=== PATIENT | male | born 1965 | race Caucasian/White ===

== ENCOUNTER 2017-08-04 14:43 | Inpatient (IN) | payer BC ==
[~2017-08-04] VITALS: Ht 175.3 cm; Wt 96.9 kg
[2017-08-04 15:40] LABS: HEMATOCRIT 43.6 % (38.0-50.0); MCHC 34.9 G/DL (30.0-36.0); MCV 80.3 FL (86-99); MEAN PLAT.VOLUME 10.3 uM^3 (9.0-12.4); PLATELET COUNT 126 K/uL (156-360); RBC DIS.WIDTH-CV 12.4 % (11.8-14.6); RBC DIS.WIDTH-SD 35.6 % (39-53); RED BLOOD COUNT 5.43 M/uL (4.00-5.50); WHITE BLOOD COUNT 7.1 K/uL (4.1-10.2)
[2017-08-04 15:44] LABS: ADD MIUA? YES; BILIRUBIN NEGATIVE; BLOOD NEGATIVE; COLOR AMBER ((YELLOW)); GLUCOSE (STRIP) 50; KETONES NEGATIVE; LEUKOCYTES NEGATIVE; NITRITE NEGATIVE; PROTEIN (STRIP) 30; SPECIFIC GRAVITY 1.023 (1.000-1.030)
[2017-08-04 15:51] LABS: BACTERIA RARE /HPF; EPITHELIAL CELLS RARE /HPF; HYALINE CASTS 0-5 /LPF; MUCUS TRACE /LPF; RED BLOOD CELLS 0-5 /HPF (0-5); WHITE BLOOD CELLS 0-5 /HPF (0-5)
[2017-08-04 16:01] LABS: CHLORIDE 104 mEq/L (99-109); POTASSIUM 3.3 mEq/L (3.7-5.4); SODIUM 135 mEq/L (136-147)
[2017-08-04 16:03] LABS: GLUCOSE 190 mg/dL (70-99)
[2017-08-04 16:04] LABS: ANION GAP 10 MEQ/L (2-14)
[2017-08-04 16:06] LABS: ALKALINE PHOSPHATASE 90 IU/L (3-129)
[2017-08-04 16:07] LABS: GFR ESTIMATE (CALCULATED) > 59 mL/min/
[2017-08-04 16:08] LABS: UREA NITROGEN (BUN) 9 mg/dL (9-23)
[2017-08-04 20:54] LABS: INFLUENZA A VIRAL ANTIGEN NEGATIVE; INFLUENZA B VIRAL ANTIGEN NEGATIVE
[2017-08-04] MEDS ORDERED: MOTRIN600 MG PO (20:58)
[2017-08-04] MEDS ORDERED: CIPRO500 MG PO (20:59)
[2017-08-04 22:17] VITALS: BP 138/85
[2017-08-04 23:41] VITALS: BP 160/80
[2017-08-05 06:58] LABS: HEMATOCRIT 40.3 % (38.0-50.0); MCH 27.5 PG (29.0-34.0); MCV 80.9 FL (86-99); MEAN PLAT.VOLUME 10.8 uM^3 (9.0-12.4); PLATELET COUNT 104 K/uL (156-360); RBC DIS.WIDTH-CV 12.6 % (11.8-14.6); RED BLOOD COUNT 4.98 M/uL (4.00-5.50); WHITE BLOOD COUNT 5.1 K/uL (4.1-10.2)
[2017-08-05 07:25] LABS: ANION GAP 8 MEQ/L (2-14); CHLORIDE 107 MEQ/L (99-109); GFR ESTIMATE (CALCULATED) > 59 mL/min/; GLUCOSE 142 mg/dL (70-99); POTASSIUM 3.4 MEQ/L (3.7-5.4); SAMPLE HEMOLYSIS CHECK 0; SAMPLE ICTERIC CHECK 0; SAMPLE LIPEMIA CHECK 0; SODIUM 140 MEQ/L (136-147); UREA NITROGEN (BUN) 9 mg/dL (9-23)
[2017-08-05 07:29] VITALS: BP 117/72
[2017-08-05 15:17] VITALS: BP 167/89
[2017-08-05 15:37] VITALS: BP 158/83
[2017-08-05 16:00] VITALS: BP 170/91
[2017-08-05 16:16] LABS: CSF LDH < 25 IU/L
[2017-08-05 16:17] VITALS: BP 152/80
[2017-08-05 16:19] LABS: APPEARANCE CLEAR/COLORLESS; RED CELL AREA COUNTED 18; RED CELL COUNT 76 /MM^3 (0-1); RED CELL DILUTION 1; WBC AREA COUNTED 18; WBC DILUTION 1; WHITE CELL COUNT 6 /MM^3 (0-5); WHITE CELL RAW COUNT 11
[2017-08-05 17:18] LABS: APPEARANCE (RECHECK) CLEAR/COLORLESS; CSF TUBE NUMBER (RECHECK) TUBE #1; RED CELL AREA COUNTED 18; RED CELL COUNT (RECHECK) 53 /MM^3 (0-1); RED CELL DILUTION 1
[2017-08-05 17:32] LABS: CSF EOSINOPHILS 0 % (0-25); MONO RAW COUNT 6; MONONUCLEAR WBC'S 100 % (50-90); POLYNUCLEAR WBC'S 0 % (0-3)
[2017-08-05 18:24] LABS: INTERNAL CONTROL VALID? YES; MONOSPOT (MONONUCLEOSIS SEROL) NEGATIVE
[2017-08-05 20:21] VITALS: BP 133/78
[2017-08-06 01:21] VITALS: BP 132/71
[2017-08-06 07:45] VITALS: BP 130/77
[2017-08-06 09:02] LABS: LYME DISEASE SEROLOGY SCREEN NEGATIVE (NEGATIVE)
[2017-08-06] MEDS ORDERED: DOXYCYCLINE HY100 MG PO (15:17)
[2017-08-06] MEDS ORDERED: TRAMADOL HCL50 MG PO (15:17)
[2017-08-06 16:31] VITALS: BP 128/70
== END 2017-08-06 16:35 | disposition home or self-care (01) | DRG 98 ==
LOC: EME 14:43 → 5EAST 20:41 → EDOF 20:41 → ENRESERV 20:45 → 5EAST 21:56
PROVIDERS: Emergency Medicine; Hospitalist; Internal Medicine; Nurse Practitioner Family
PROC: 009U3ZX Drainage of Spinal Canal, Percutaneous Approach, Diagnostic (ICD-10-PCS; principal; 2017-08-04)
DX: G03.0 Nonpyogenic meningitis (principal); D69.6 Thrombocytopenia, unspecified; N39.0 Urinary tract infection, site not specified
CPT/HCPCS: 62270; 70450; 71020; 77003; 80048; 80053; 80202; 81003; 82945; 83605; 83615 91; 84157; 85027; 86308; 86618; 87040; 87070; 87205; 87502; 87651 90; 89051; 99281; 99285; J0696; J1170; J1650; J1885; J3010; J3370; J7030; J7040; J7050; J7120